=== PATIENT | female | born 1960 | race Caucasian/White ===

== ENCOUNTER 2020-06-10 15:39 | Outpatient (REF) | payer OTHER, SELFPAY | END 2020-06-10 15:40 | disposition home or self-care (01) | LOC: HO.LAB 15:39 | PROVIDERS: PCP Nurse Practitioner Family; Visit Provider Internal Medicine | DX: Z20.828 Contact with and (suspected) exposure to other viral communicable diseases (principal) | CPT/HCPCS: C9803; U0003 ==

== ENCOUNTER 2020-06-19 10:59 | Outpatient (REF) | payer OTHER, SELFPAY | END 2020-06-19 11:00 | disposition home or self-care (01) | LOC: HO.LAB 10:59 | PROVIDERS: PCP Nurse Practitioner Family; Visit Provider Internal Medicine | DX: Z20.828 Contact with and (suspected) exposure to other viral communicable diseases (principal) | CPT/HCPCS: C9803; U0003 ==

== ENCOUNTER 2021-01-20 16:13 | Outpatient (REF) | payer OTHER, SELFPAY ==
--- NOTE | ~2021-01-20 | XR_ITS ---
EXAMINATION: XR RIBS, LEFT CLINICAL INFORMATION: Pleurodynia COMPARISON: None TECHNIQUE: 3 views of the left ribs and one view of the chest were obtained. FINDINGS: The cardiac and mediastinal contours are normal. The lungs are clear. There is no pleural effusion or pneumothorax area there are degenerative changes of the spine. There is a calcified lesion in the right upper quadrant questionable for gallbladder, liver or right renal calcification. No rib fracture or bone lesion is seen. There are degenerative changes of thoracic spine. XR/XR ribs LT min 3V w CXR1V IMPRESSION: No rib fracture or bone lesion is seen. Degenerative changes of the thoracic spine. Right upper quadrant calcification, question representing gallbladder, liver or right renal calcification.
--- NOTE | ~2021-01-20 | US_ITS ---
EXAMINATION: US ABDOMEN LIMITED CLINICAL INFORMATION: Localized swelling, mass and lump, unspecified. COMPARISON: None TECHNIQUE: Real-time imaging of the left flank in the region of concern as indicated by the patient. FINDINGS: No soft tissue mass or hernia is appreciated by ultrasound. US/US abdomen limited IMPRESSION: No abnormality appreciated by ultrasound.
== END 2021-01-20 16:14 | disposition home or self-care (01) ==
LOC: HO.US 16:13
PROVIDERS: Visit Provider Physician Assistant
DX: R22.9 Localized swelling, mass and lump, unspecified (principal); R07.81 Pleurodynia
CPT/HCPCS: 71101; 76705

== ENCOUNTER 2021-01-22 12:44 | Outpatient (REF) | payer OTHER, SELFPAY ==
[2021-01-22 13:59] LABS: Hematocrit 43.6 % (37-47); Hemoglobin 14.3 g/dl (12.0-16.0); Mean Corpuscular HGB Conc 32.8 g/dl (31.0-35.0); Mean Corpuscular Hemoglobin 28.9 pg (27.0-33.0); Mean Corpuscular Volume 88.3 fL (80-98); Mean Platelet Volume 11.2 fL (9.4-12.3); Platelet Count 275 X10*3/uL (160-400); Red Blood Count 4.94 X10*6/uL (4.20-5.50); White Blood Count 9.2 X10*3/uL (4.8-10.8)
[2021-01-22 14:10] LABS: Alanine Aminotransferase 41 U/L (0-31); Albumin Level 4.7 g/dL (3.5-5.0); Alkaline Phosphatase 122 U/L (39-117); Anion Gap 13 (12-20); Aspartate Amino Transferase 27 U/L (5-31); Bilirubin Total 0.5 mg/dL (0.0-1.0); Blood Urea Nitrogen 19 mg/dL (9-16); Calcium 10.2 mg/dL (8.4-10.2); Carbon Dioxide 28 mmol/L (22-29); Chloride 106 mmol/L (96-108); Cholesterol 278 mg/dL; Estimated Glomerular Filt Rate > 60; Glucose Fasting 156 mg/dL (60-99); HDL Cholesterol 58 mg/dL; LDL Cholesterol Calculated 185 mg/dl; Potassium 5.2 mmol/L (3.3-5.1); Sodium 142 mmol/L (135-145); Total Protein 8.1 g/dL (6.5-8.0); Triglycerides 179 mg/dL
[2021-01-22 14:23] LABS: Creatinine Urine 301.17 mg/dL; Microalbum/Creatinine Ratio Ur 31.5 ug/mg cr
[2021-01-22 14:23] LABS: Estimated Average Glucose 160 mg/dL; Hemoglobin A1c % 7.2 %
== END 2021-01-22 12:45 | disposition home or self-care (01) ==
LOC: HO.LAB 12:44
PROVIDERS: Absent Provider Internal Medicine; PCP Internal Medicine; Visit Provider Physician Assistant
DX: E11.9 Type 2 diabetes mellitus without complications (principal); I10 Essential (primary) hypertension
CPT/HCPCS: 36415; 80053; 80061; 82043; 83036; 84443; 85027

== ENCOUNTER → 2021-07-15 16:01 | Outpatient (BNVA) | payer OTHER, SELFPAY | PROVIDERS: PCP Internal Medicine; Visit Provider Physician Assistant Surgical ==

== ENCOUNTER → 2021-08-11 07:59 | Outpatient (BNVA) | payer OTHER, SELFPAY | PROVIDERS: PCP Nurse Practitioner Family; Visit Provider Surgery ==

== ENCOUNTER → 2021-12-08 09:37 | Outpatient (BNVA) | payer OTHER, SELFPAY | PROVIDERS: PCP Nurse Practitioner Family; Visit Provider Physician Assistant Medical | DX: S80.02XA Contusion of left knee, initial encounter (principal); S93.401A Sprain of unspecified ligament of right ankle, initial encounter; S39.012A Strain of muscle, fascia and tendon of lower back, initial encounter; W01.0XXA Fall on same level from slipping, tripping and stumbling without subsequent striking against object, initial encounter | CPT/HCPCS: 73564; 73610; 99203 ==

== ENCOUNTER → 2021-12-12 09:45 | Outpatient (BNVA) | payer OTHER, SELFPAY | PROVIDERS: PCP Nurse Practitioner Family; Visit Provider Physician Assistant Medical | DX: S80.02XA Contusion of left knee, initial encounter (principal); S93.401A Sprain of unspecified ligament of right ankle, initial encounter; S00-T88 Injury, poisoning and certain other consequences of external causes; S39.012A Strain of muscle, fascia and tendon of lower back, initial encounter; W19.XXXA Unspecified fall, initial encounter | CPT/HCPCS: 99213 ==

== ENCOUNTER → 2021-12-18 07:55 | Outpatient (BNVA) | payer OTHER, SELFPAY | PROVIDERS: PCP Nurse Practitioner Family; Visit Provider Physician Assistant Medical | DX: S80.02XA Contusion of left knee, initial encounter (principal); S93.401A Sprain of unspecified ligament of right ankle, initial encounter; S39.012A Strain of muscle, fascia and tendon of lower back, initial encounter; W18.30XA Fall on same level, unspecified, initial encounter; M24.812 Other specific joint derangements of left shoulder, not elsewhere classified | CPT/HCPCS: 99213 ==

== ENCOUNTER → 2021-12-30 08:00 | Outpatient (BNVA) | payer OTHER, SELFPAY | PROVIDERS: PCP Nurse Practitioner Family; Visit Provider Physician Assistant Medical | DX: S80.02XD Contusion of left knee, subsequent encounter (principal); S93.401D Sprain of unspecified ligament of right ankle, subsequent encounter; S39.012D Strain of muscle, fascia and tendon of lower back, subsequent encounter; W18.30XD Fall on same level, unspecified, subsequent encounter; M24.812 Other specific joint derangements of left shoulder, not elsewhere classified | CPT/HCPCS: 73030; 73620; 99214 ==

== ENCOUNTER → 2022-02-02 14:20 | Outpatient (BNVA) | payer OTHER, SELFPAY | PROVIDERS: PCP Nurse Practitioner Family; Visit Provider Physician Assistant | DX: S93.401A Sprain of unspecified ligament of right ankle, initial encounter (principal) | CPT/HCPCS: 99202 ==

== ENCOUNTER → 2022-02-05 14:26 | Outpatient (BNVA) | payer OTHER, SELFPAY | PROVIDERS: PCP Nurse Practitioner Family; Visit Provider Physician Assistant | DX: S80.02XD Contusion of left knee, subsequent encounter (principal); S96.911D Strain of unspecified muscle and tendon at ankle and foot level, right foot, subsequent encounter; S39.012D Strain of muscle, fascia and tendon of lower back, subsequent encounter; W18.30XD Fall on same level, unspecified, subsequent encounter; M24.812 Other specific joint derangements of left shoulder, not elsewhere classified | CPT/HCPCS: 99213 ==

== ENCOUNTER → 2022-02-19 13:53 | Outpatient (BNVA) | payer OTHER, SELFPAY | PROVIDERS: PCP Nurse Practitioner Family; Visit Provider Physician Assistant Medical | DX: S80.02XD Contusion of left knee, subsequent encounter (principal); S93.401D Sprain of unspecified ligament of right ankle, subsequent encounter; S39.012D Strain of muscle, fascia and tendon of lower back, subsequent encounter; W01.0XXD Fall on same level from slipping, tripping and stumbling without subsequent striking against object, subsequent encounter; M24.812 Other specific joint derangements of left shoulder, not elsewhere classified | CPT/HCPCS: 99213 ==

== ENCOUNTER 2022-02-23 15:00 | Outpatient (RCR) | payer OTHER, SELFPAY ==
--- NOTE | 2021-12-16 10:20 | MHC.PT.EP ---
[facility] [place] Office [place] Office [place] Office [address] Lindsey Arnold [address] [phone] F: [phone] F: [phone] F: [phone] F: [phone] Physical Therapy Plan of Care Date of Evaluation: Date of Surgery: Diagnosis: Lt KNEE CONTUSION W EDEMA AND Rt ANKLE SPRAIN/ BRUISED 1ST METATARSAL Assessment: 61 YO FEMALE REF TO PT W H/O SUSTAINING A FALL AT WORK ON 12/08/21 W RESULTANT LEFT KNEE AND Rt ANKLE PAIN- Pt ALSO NOTES LEFT SH PAIN AND WE DISCUSSED IMPORTANCE OF F/U W HER MD. SHE IS CURRENTLY OOW W HER INJURIES- SHE IS A FULL-TIME TEACHER. Pt IS NOT USING AND AD, SHE WAS TALIB-WRAPPING Rt ANKLE. OBJECTIVE: MILD EDEMA IN LEFT KNEE AND Rt ANKLE, DECR ROM IN PEPE ANKLES/ HIPS, PAIN LEFT ANT KNEE/ PERIPATELLAR AREA AND Rt ANTEROLAT MALL, STRENGTH DEFICITS IN PROX HIPS, AND (+) ASYMMETRY IN PELVIS/ CREATING LLI EFFECT. FUNCTIONALLY, Pt HAS DIFFIC W FUNCTIONAL SQUATS, INCR AMB, STAIR MGMT- SHE HAS BEEN RESTRICTING HER ACTIVITY LEVEL SINCE HER FALL. Pt WOULD BENEFIT FROM PT TO ADDRESS THE ABOVE FINDINGS, PAIN MGMT, DEV A PROGR HEP AND SX MGMT STRATEGIES, AND , ULTIMATELY ASSIST Pt IN RTW. Frequency and Duration: The patient will be seen 2 x WK x 5 WKS Short Term Goals: Pt DEMON IMPROVED AROM IN PEPE ANKLES, LEFT HS, PEPE HIPS IN 2 WKS Pt'S Rt ANKLE AND LEFT KNEE PAIN DECR TO 2-3/10 W REG ADLs IN 2 WKS Pt DEMON WFL FUNCT SQUAT IN 2 WKS Pt DEMON WFL GAIT MECH ON LEVAL AND STAIRS IN 3 WKS Director Of Midwifery/Staff Midwife Goals: Pt INDEP W HEP PROGRESSION AND SELF-SX MGMT STRATEGIES IN 5 WKS Pt RESUME REG ADLs / RTW EVIDENT W IMPROVED LEFI SCORE BY 8-10 POINTS (AT EVAL 14/80 ) IN 5 WKS Pt INCR LE STRENGTH BY 1/2- 1 GRADE IN 5 WKS Treatment Plan: Modalities to reduce pain, spasms and effusion. Manual therapy to restore motion and function. Therapeutic exercise to improve strength and flexibility. Neuromuscular re-education for posture and balance. Therapeutic activities to return to functional activities of daily living. Electronically signed by: Abida Oritz PT Please sign and return to therapist. Thank you for your referral.
--- NOTE | 2022-02-24 15:01 | MHC.PT.DC ---
[facility] [place] Office [place] Office [place] Office [address] Lindsey Arnold [address] [phone] F: [phone] F: [phone] F: [phone] F: [phone] Physical Therapy Discharge Report Diagnosis: Lt KNEE CONTUSION W EDEMA AND Rt ANKLE SPRAIN/ BRUISED 1ST METATARSAL Date of Surgery: Date of Evaluation: 12/16/21 Date of Discharge: 02/23/22 Treatments to Date: 9 Cancellations to Date: No Shows to Date: Discharge Status: Achieved Goals Improved Function Independent with HEP Discharge Summary: Pt HAS PROGRESSED WELL IN PT- HER PAIN HAS RELATIVELY RESOLVED- SHE HAS A THOROUGH HEP, WITH INCONSISTENT COMPLIANCE. SHE IS D/C'D THIS DATE W HER HEP, SHE HAS MET HER PT GOALS TO MAX POTENTIAL AT THIS TIME. Electronically signed by: Abida Ortiz,PT Please sign and return to therapist. Thank you for your referral.
== END 2022-02-24 15:01 | disposition home or self-care (01) ==
LOC: HO.PT 15:00
PROVIDERS: PCP Nurse Practitioner Family; Visit Provider Physician Assistant Medical
DX: S39.012D Strain of muscle, fascia and tendon of lower back, subsequent encounter (principal); S29.012D Strain of muscle and tendon of back wall of thorax, subsequent encounter; S49.92XD Unspecified injury of left shoulder and upper arm, subsequent encounter; M24.562 Contracture, left knee
CPT/HCPCS: 97110; 97140; 97162; 97530

== ENCOUNTER → 2022-03-19 15:40 | Outpatient (BNVA) | payer OTHER, SELFPAY | PROVIDERS: PCP Nurse Practitioner Family; Visit Provider Physician Assistant Medical | DX: S80.02XD Contusion of left knee, subsequent encounter (principal); S93.401D Sprain of unspecified ligament of right ankle, subsequent encounter; S39.012D Strain of muscle, fascia and tendon of lower back, subsequent encounter; W01.0XXD Fall on same level from slipping, tripping and stumbling without subsequent striking against object, subsequent encounter; M24.812 Other specific joint derangements of left shoulder, not elsewhere classified | CPT/HCPCS: 99213 ==

== ENCOUNTER → 2022-04-03 08:37 | Outpatient (BNVA) | payer OTHER, SELFPAY | PROVIDERS: PCP Nurse Practitioner Family; Visit Provider Physician Assistant Medical | DX: S80.02XD Contusion of left knee, subsequent encounter (principal); S96.911D Strain of unspecified muscle and tendon at ankle and foot level, right foot, subsequent encounter; S39.012D Strain of muscle, fascia and tendon of lower back, subsequent encounter; W01.0XXD Fall on same level from slipping, tripping and stumbling without subsequent striking against object, subsequent encounter; M24.812 Other specific joint derangements of left shoulder, not elsewhere classified | CPT/HCPCS: 99213 ==

== ENCOUNTER → 2022-05-28 14:41 | Outpatient (BNVA) | payer OTHER, SELFPAY | PROVIDERS: PCP Nurse Practitioner Family; Visit Provider Physician Assistant Medical | DX: S80.02XD Contusion of left knee, subsequent encounter (principal); S93.401D Sprain of unspecified ligament of right ankle, subsequent encounter; S39.012D Strain of muscle, fascia and tendon of lower back, subsequent encounter; W01.0XXD Fall on same level from slipping, tripping and stumbling without subsequent striking against object, subsequent encounter; M24.812 Other specific joint derangements of left shoulder, not elsewhere classified; M25.552 Pain in left hip | CPT/HCPCS: 99213 ==

== ENCOUNTER → 2022-06-09 14:55 | Outpatient (BNVA) | payer OTHER, SELFPAY | PROVIDERS: PCP Nurse Practitioner Family; Visit Provider Physician Assistant Medical | DX: S80.02XD Contusion of left knee, subsequent encounter (principal); S93.401D Sprain of unspecified ligament of right ankle, subsequent encounter; S39.012D Strain of muscle, fascia and tendon of lower back, subsequent encounter; W01.0XXD Fall on same level from slipping, tripping and stumbling without subsequent striking against object, subsequent encounter; M24.812 Other specific joint derangements of left shoulder, not elsewhere classified; M25.552 Pain in left hip | CPT/HCPCS: 99213 ==

== ENCOUNTER 2022-06-09 16:24 | Outpatient (REF) | payer OTHER, SELFPAY ==
--- NOTE | ~2022-06-09 | MR_ITS ---
EXAMINATION: MR KNEE WITHOUT CONTRAST, LEFT CLINICAL INFORMATION: Contusion, pain, derangement COMPARISON: None TECHNIQUE: MRI of the knee without contrast was performed using routine sequences on a high-field scanner. FINDINGS: MENISCI: Medial Meniscus: Degeneration with possible minimal undersurface fraying of the posterior root. No tear is otherwise seen. Lateral Meniscus: Intact LIGAMENTS: Cruciate: Intact Collateral: Intact EXTENSOR MECHANISM: Intact ARTICULAR CARTILAGE/BONE: Patellofemoral Compartment: There is cartilage thinning in the superior aspect of the central patella and medial patellar facet. Medial Compartment: No significant cartilage loss Lateral Compartment: No significant cartilage loss JOINT FLUID AND BURSAE: Small joint fluid. Tiny Mena's cyst. Popliteus muscle and tendon intact. Pes anserine tendons appear unremarkable. MR/MR knee LT wo con IMPRESSION: 1. Degeneration with possible minimal undersurface fraying of the posterior root of the medial meniscus. No discrete meniscal tear is otherwise seen. 2. Mild chondromalacia patella. 3. Small joint fluid. Tiny Mena's cyst.
== END 2022-06-09 16:25 | disposition home or self-care (01) ==
LOC: HO.MRI 16:24
PROVIDERS: PCP Nurse Practitioner Family; Visit Provider Internal Medicine
DX: M25.562 Pain in left knee (principal); M23.92 Unspecified internal derangement of left knee; S80.02XD Contusion of left knee, subsequent encounter; X58.XXXD Exposure to other specified factors, subsequent encounter
CPT/HCPCS: 73721

== ENCOUNTER 2022-06-24 08:12 | Outpatient (REF) | payer OTHER, SELFPAY ==
--- NOTE | ~2022-06-24 | XR_ITS ---
EXAMINATION: X-RAY BILATERAL KNEES X-RAY LEFT KNEE CLINICAL INFORMATION: Left knee pain COMPARISON: X-ray 12/08/2021 TECHNIQUE: AP bilateral knees one view. Left knee 2 views. FINDINGS: Left knee: No acute fracture or dislocation. Joint spaces are maintained. Small marginal patellar osteophyte. No significant effusion. Soft tissues unremarkable. Right knee: No acute fracture or dislocation. Joint spaces are maintained. XR/XR knee standing BI IMPRESSION: No acute findings. Stable mild left patellar marginal spurring.
--- NOTE | ~2022-06-24 | XR_ITS ---
EXAMINATION: X-RAY BILATERAL KNEES X-RAY LEFT KNEE CLINICAL INFORMATION: Left knee pain COMPARISON: X-ray 12/08/2021 TECHNIQUE: AP bilateral knees one view. Left knee 2 views. FINDINGS: Left knee: No acute fracture or dislocation. Joint spaces are maintained. Small marginal patellar osteophyte. No significant effusion. Soft tissues unremarkable. Right knee: No acute fracture or dislocation. Joint spaces are maintained. XR/XR knee LT 2V IMPRESSION: No acute findings. Stable mild left patellar marginal spurring.
== END 2022-06-24 08:13 | disposition home or self-care (01) ==
LOC: HO.HOSX 08:12
PROVIDERS: Visit Provider Physician Assistant
DX: M17.12 Unilateral primary osteoarthritis, left knee (principal)
CPT/HCPCS: 73560; 73565; 99212

== ENCOUNTER → 2022-07-06 14:16 | Outpatient (BNVA) | payer OTHER, SELFPAY | PROVIDERS: PCP Nurse Practitioner Family; Visit Provider Physician Assistant | DX: M17.12 Unilateral primary osteoarthritis, left knee (principal) | CPT/HCPCS: 20610; J1020 ==

== ENCOUNTER → 2022-09-02 08:29 | Outpatient (BNVA) | payer OTHER, SELFPAY | PROVIDERS: Visit Provider Physician Assistant | DX: M17.12 Unilateral primary osteoarthritis, left knee (principal) | CPT/HCPCS: 99212 ==

== ENCOUNTER → 2022-09-07 11:13 | Outpatient (BNVA) | payer OTHER, SELFPAY | PROVIDERS: Visit Provider Orthopaedic Surgery | DX: M22.2X2 Patellofemoral disorders, left knee (principal); M17.12 Unilateral primary osteoarthritis, left knee | CPT/HCPCS: 99212 ==

== ENCOUNTER → 2022-10-19 12:08 | Outpatient (BNVA) | payer OTHER, SELFPAY | PROVIDERS: Visit Provider Orthopaedic Surgery | DX: M22.2X2 Patellofemoral disorders, left knee (principal) | CPT/HCPCS: 99202 ==

== ENCOUNTER 2022-11-05 17:00 | Outpatient (RCR) | payer OTHER, SELFPAY ==
--- NOTE | 2022-08-19 09:45 | MHC.PT.EP ---
[facility] [place] Office [place] Office [place] Office [address] Lindsey Arnold [address] [phone] F: [phone] F: [phone] F: [phone] F: [phone] Physical Therapy Plan of Care Date of Evaluation: Date of Surgery: Diagnosis: L knee osteoarthritis Assessment: Patient is a 62 y.o. female who is referred to PT by SCOTT Porras with Dx of osteoarthritis of L knee. PT diagnosis is medial meniscus degeneration and mild chondromalacia patella (as verified on MRI). Patient impairments include localized swelling, pain, limited ROM, weakness. Patient current functional limitations are walking long distances, walking outside on uneven surfaces, bending, standing (more than 1 hr), and using stairs. Patient will benefit from skilled PT to address aforementioned impairments and functional limitations to meet established goals. Frequency and Duration: The patient will be seen 2x/week for 6 weeks Short Term Goals: 3 weeks Patient demonstrates consistency and independence with HEP to self manage symptoms. Patient presents with reduced swelling in L knee 40 cm to be able to perform sit to stand without compensations. Hide Tanner Goals: 6 weeks Patient presents with increased L knee flexion 115 degrees to be able to squat to low surfaces. Patient presents with increased L knee extension 4+/5 to be able to perform stairs step to pattern with railing. Treatment Plan: Modalities to reduce pain, spasms and effusion. Manual therapy to restore motion and function. Therapeutic exercise to improve strength and flexibility. Neuromuscular re-education for posture and balance. Therapeutic activities to return to functional activities of daily living. Electronically signed by: Júnior Paris, PT, DPT Please sign and return to therapist. Thank you for your referral.
--- NOTE | 2022-11-10 12:49 | MHC.PT.DC ---
[facility] [place] Office [place] Office [place] Office [address] Lindsey Arnold [address] [facility] [phone] F: [phone] F: [phone] F: [phone] F: [phone] Physical Therapy Discharge Report Diagnosis: L knee osteoarthritis PT diagnosis is medial meniscus degeneration and mild chondromalacia patella (as verified on MRI). Date of Surgery: Date of Evaluation: 08/18/22 Date of Discharge: 11/05/22 Treatments to Date: 20 Cancellations to Date: No Shows to Date: Discharge Status: Achieved Goals Improved Function Independent with HEP Discharge Summary: All goals met -LEFS improved from 10%- 37.5% Electronically signed by: Júnior Paris PT, DPT Please sign and return to therapist. Thank you for your referral.
== END 2022-11-10 12:50 | disposition home or self-care (01) ==
LOC: HO.PT 17:00
PROVIDERS: PCP Nurse Practitioner Family; Visit Provider Physician Assistant
DX: M17.12 Unilateral primary osteoarthritis, left knee (principal)
CPT/HCPCS: 97110; 97140; 97161; 97530

== ENCOUNTER → 2022-11-06 08:58 | Outpatient (BNVA) | payer OTHER, SELFPAY | PROVIDERS: Visit Provider Nurse Practitioner Family | DX: M22.2X2 Patellofemoral disorders, left knee (principal); M79.605 Pain in left leg; G57.92 Unspecified mononeuropathy of left lower limb | CPT/HCPCS: 99202 ==

== ENCOUNTER → 2022-12-17 14:39 | Outpatient (BNVA) | payer OTHER, SELFPAY | PROVIDERS: PCP Nurse Practitioner Family; Visit Provider Orthopaedic Surgery | DX: M22.2X2 Patellofemoral disorders, left knee (principal); M17.12 Unilateral primary osteoarthritis, left knee; M25.462 Effusion, left knee | CPT/HCPCS: 99212 ==

== ENCOUNTER 2023-04-01 08:33 | Outpatient (REF) | payer OTHER, SELFPAY ==
--- NOTE | 2023-04-01 08:35 | EMG_ITS ---
Right tibial and peroneal motor studies were performed. Right sural, superficial peroneal and medial and lateral plantar sensory studies were performed and tibial H-reflex was obtained. Needle examination was performed. IMPRESSION: No evidence of entrapment neuropathy across the knee. 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 MD CLEOPATRA Shore/JAMAAL / [phone]
== END 2023-04-01 08:34 | disposition home or self-care (01) ==
LOC: HO.NEURO 08:33
PROVIDERS: PCP Nurse Practitioner Family; Visit Provider Nurse Practitioner Family
DX: G57.92 Unspecified mononeuropathy of left lower limb (principal); M22.2X2 Patellofemoral disorders, left knee; M79.605 Pain in left leg
CPT/HCPCS: 95886; 95910

== ENCOUNTER 2023-05-25 13:51 | Outpatient (REF) | payer OTHER, SELFPAY ==
[2023-05-26 12:26] LABS: CT PCR NOT DETECTED (Not Detect.); NG PCR NOT DETECTED (Not Detect.)
[2023-05-27 13:54] LABS: BV Int Neg Control Negative (Negative); BV Int Pos Control Positive (Positive)
[2023-05-27 20:18] LABS: HPV mRNA E6/E7 rflx Not Detected (Not Detected)
== END 2023-05-25 13:52 | disposition home or self-care (01) ==
LOC: HO.LNP 13:51
PROVIDERS: PCP Nurse Practitioner Family; Visit Provider Advanced Practice Midwife
DX: Z01.419 Encounter for gynecological examination (general) (routine) without abnormal findings (principal); Z11.51 Encounter for screening for human papillomavirus (HPV); Z78.0 Asymptomatic menopausal state; Z20.2 Contact with and (suspected) exposure to infections with a predominantly sexual mode of transmission
CPT/HCPCS: 0353U; 87480; 87510; 87624; 87660; 88142

== ENCOUNTER 2023-05-25 13:51 | Outpatient (AMB) | payer OTHER, SELFPAY ==
--- NOTE | 2023-05-25 13:53 | MHC.OFFVIS ---
Intake Vital Signs 05/25/23 14:04 Height 4 ft 10.5 in Weight 186 lb BMI 38.2 BP 124/76 Intake Visit Reasons: [employer] annual exam/DO NOT RS DO NOT OVERBOOK Intake Note: no concerns Sprinkler Driver Required: No Information Interpreted: non-clinical & clinical Signalling And Communications Engineer: Signalling And Communications Engineer Present (Marion CUELLAR) Accompanied by: Self / Same As Patient Allergies No Known Allergies [No Known Allergies*] Allergy (Verified 05/25/23 14:06) Post menopausal: Yes HPI [employer] annual exam/DO NOT RS DO NOT OVERBOOK HPI Details Patient is here for new composition weatherboard applier exam it has been many many years since she has come for an composition weatherboard applier exam she last saw Dr. Herbert when she was her last Pap smear in the [facility] system is in 2001. She delivered both babies with him 1 at [place] and 1 here. She has not had any composition weatherboard applier problems and so she did not seek care. She has diabetes and her doctor is in [place] and she is trying her on low dose of Ozempic and the low-dose she was given was not low enough so she has gone even lower. She works as the paraprofessional in the school so. She was exercising but then she fell and injured her knee and ankles last year so exercise was hard she did do physical therapy. She is not really worried about STDs but is open to testing along with the Pap smear. [facility] Medical History Depression DJD (degenerative joint disease) Obesity Surgical History No pertinent past surgical history Family History Mother No problems noted. Father No problems noted. Social History (Updated 05/25/23 @ 14:09 by Marion Aparicio CMA) Household Members: Spouse Housing: House Alcohol intake: never Patient Tobacco Use Status: Never used Tobacco Current occupational status: employed Current occupation: teacher Sexual orientation: Straight/Heterosexual Gender identity: Female Female Reproductive History Menstrual Menopause type: natural Total pregnancies: 2 Full term: 2 Number of Living Children: 2 Date of Mammogram: 02/17/21 Physical Exam Vital Signs: Last Vital Signs BP 124/76 10/31/23 14:04 BMI result Body Mass Index 38.2 Const General: healthy appearing, comfortable, no acute distress, well developed and alert Nutritional Appearance: average body habitus Orientation/consciousness: patient oriented x3 Limitations: no limitations HEENT Head: Yes normocephalic Neck Neck: Yes normal visual inspection Chest Chest palpation & inspection: normal inspection of the chest Breast/axilla inspection: normal inspection of the breasts and normal inspection of the axillae Breast/axilla palpation: normal palpation of the breasts and normal palpation of the axillae Resp Effort & Inspection: normal respiratory effort GI Inspection: Yes normal to inspection, No Abdominal wall edema and No distended Palpation (GI): Soft to palpation and nontender General: Yes bladder normal to palpation External Female Exam: normal external appearance and normal appearance of the urethra Speculum Exam - Vagina: normal appearance of the vagina, normal palpation and normal vaginal discharge Speculum Exam - Cervix: normal appearance of the cervix, normal palpation and nontender Bimanual exam- vagina & uterus: normal bimanual exam, normal palpation, uterine size normal, bladder normal to palpation, consistency normal, normal palpation, uterine mobility normal, uterine shape normal, No Cervical tenderness present, non-tender and no cervical motion tenderness Bimanual Exam- Adnexa, other: normal adnexae, no masses, normal and No adnexal tenderness Neuro General: patient oriented x3 Assessment & Plan Assessment & Plan (1) Obesity: Code(s): E66.9 - Obesity, unspecified (2) DMII (diabetes mellitus, type 2): Code(s): E11.9 - Type 2 diabetes mellitus without complications Qualifiers: Diabetes mellitus intermediate frame tender insulin use: without intermediate frame tender use Diabetes mellitus complication status: without complication Qualified Code(s): E11.9 - Type 2 diabetes mellitus without complications (3) Well woman exam with routine gynecological exam: Code(s): Z01.419 - Encounter for gynecological examination (general) (routine) without abnormal findings (4) Cervical cancer screening: Comment: No history of abnormals previous Pap was in 2001. Code(s): Z12.4 - Encounter for screening for malignant neoplasm of cervix (5) Postmenopausal: Code(s): Z78.0 - Asymptomatic menopausal state Plan -----Discussed in this visit the following: healthy balanced diet, regular and consistent exercise, getting recommended health screens, doing the best she can for her particular health concerns, kegel exercises, pap smear screening and followup recommendations, mammography screening and SBE, normal changes in cycles in her life stage--- . Patient will be scheduling her mammogram that was ordered by her primary care provider. Pap smear did was done and I offered the patient screens for infection while doing the Pap and she excepted those but has no need of blood work. She will be seeing her primary care provider in May for follow-up on her diabetes and med management. She complained of a leg cramp all she was putting her legs in stirrups. She says she often gets them at night I did suggest magnesium 250 mg once or twice a day and she could run this by her primary as well. RTC 1 year Orders: Orders Pap Smear Today Z01.419 - Encounter for gynecological examination (general) (routine) without abnormal findings CT NG by PCR Today Z01.419 - Encounter for gynecological examination (general) (routine) without abnormal findings Bacterial Vaginosis Panel Today Z01.419 - Encounter for gynecological examination (general) (routine) without abnormal findings Coding Level of Care Code New Pt Prev Care 40-64y(23448) Diagnoses Obesity E66.9 Type 2 diabetes mellitus without complication, without long-term current use of insulin E11.9 Diabetes mellitus intermediate frame tender insulin use: without intermediate frame tender use Diabetes mellitus complication status: without complication Well woman exam with routine gynecological exam Z01.419 Cervical cancer screening Z12.4 Postmenopausal Z78.0
[2023-05-25 14:04] VITALS: BP 124/76; BMI 38.2
== END 2023-05-25 14:48 | disposition home or self-care (01) ==
LOC: HO.HWS 13:52
PROVIDERS: PCP Nurse Practitioner Family; Visit Provider Advanced Practice Midwife
DX: Z01.419 Encounter for gynecological examination (general) (routine) without abnormal findings (principal); E66.9 Obesity, unspecified; E11.9 Type 2 diabetes mellitus without complications; Z12.4 Encounter for screening for malignant neoplasm of cervix; Z78.0 Asymptomatic menopausal state
CPT/HCPCS: 99386

== ENCOUNTER 2024-08-09 14:20 | Outpatient (REF) | payer BC, SELFPAY ==
[2024-08-10 10:44] LABS: HPV 16,18/45 See PAP report
== END 2024-08-09 14:21 | disposition home or self-care (01) ==
LOC: HO.LNP 14:20
PROVIDERS: PCP Nurse Practitioner Family; Visit Provider Advanced Practice Midwife
DX: Z01.419 Encounter for gynecological examination (general) (routine) without abnormal findings (principal); Z11.51 Encounter for screening for human papillomavirus (HPV)
CPT/HCPCS: 87626; 88175

== ENCOUNTER 2024-08-09 14:20 | Outpatient (AMB) | payer BC, SELFPAY ==
--- NOTE | 2024-08-09 14:20 | MHC.OFFVIS ---
Vital Signs 08/09/24 14:21 Height 5 ft 1 in Weight 175 lb BMI 33.1 BP 112/70 Intake Visit Reasons: Annual Intake Note: no concerns Airline Mechanic Required: No Information Interpreted: non-clinical & clinical Epic Prelude Analyst: Epic Prelude Analyst Present (Marion CUELLAR) Accompanied by: Self / Same As Patient Allergies No Known Allergies [No Known Allergies*] Allergy (Verified 08/09/24 14:28) Medication List - Last Reconciled 08/09/24 by Bonnie Dodson CNM blood sugar diagnostic As directed blood-glucose meter (FreeStyle Flash System kit) As directed lancets (FreeStyle Lancets) As directed lancets (FreeStyle Lancets) As directed rosuvastatin 10 mg PO DAILY semaglutide (Ozempic) 0.25 mg subcut QWEEK Post menopausal: Yes HPI HPI Annual: Details: 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 She is feeling pretty good she started on Ozempic about a year ago to help get her hemoglobin A1c down from about 9 to now it is between 5 and 6 she sees her primary care provider in [place] and that is where she gets her mammograms at as well it is a [facility] practice. 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 She has not been sexually active in the last couple of years and she did have lots of questions about this towards the end of the visit in that she would be interested in more activity but her is less interested and couple of years ago he did get some pills to use but he is not sure they worked and he is expressing less interest these days and she is wondering if this is normal. She says he does not go to the doctor but she does not believe he has diabetes and he has is very healthy. She checks his blood sugar when she checks her sometimes. They have been together 43 years and if it is normal to have decreased sexual activity in these years she will be okay with it. [facility] Medical History Depression DJD (degenerative joint disease) Obesity Surgical History No pertinent past surgical history Family History Mother No problems noted. Father No problems noted. Social History Household Members: Spouse Housing: House Alcohol intake: never Patient Tobacco Use Status: Never used Tobacco Current occupational status: employed Current occupation: teacher Sexual orientation: Straight/Heterosexual Gender identity: Female Female Reproductive History Menstrual Menopause type: natural Total pregnancies: 2 Full term: 2 Number of Living Children: 2 Date of last pap smear: 05/26/23 Date of Mammogram: 02/17/21 Physical Exam Vital Signs: Last Vital Signs BP 112/70 08/09/24 14:21 BMI result Body Mass Index 33.1 Const General: healthy appearing, comfortable, no acute distress, well developed and alert Nutritional Appearance: average body habitus Orientation/consciousness: patient oriented x3 Limitations: no limitations HEENT Head: Yes normocephalic Neck Neck: Yes normal visual inspection Chest Chest palpation & inspection: normal inspection of the chest Breast/axilla inspection: normal inspection of the breasts and normal inspection of the axillae Breast/axilla palpation: normal palpation of the breasts and normal palpation of the axillae Resp Effort & Inspection: normal respiratory effort GI Inspection: Yes normal to inspection, No Abdominal wall edema and No distended Palpation (GI): Soft to palpation and nontender Other: Vagina pink and moist some atrophic changes to vaginal mucosa evident there was a red spot adjacent to patient's cervix so decision was made to take Pap smear and cervical spatula did include this area just for thoroughness even though her last Pap smear was done 2022 negative and she says she has never had an abnormal 1. Cervix is otherwise pink smooth uterus anteverted mobile nontender adnexa nontender good tone with Kegel. General: Yes bladder normal to palpation External Female Exam: normal external appearance and normal appearance of the urethra Speculum Exam - Vagina: normal appearance of the vagina, normal palpation and normal vaginal discharge Speculum Exam - Cervix: normal appearance of the cervix, normal palpation and nontender Bimanual exam- vagina & uterus: normal bimanual exam, normal palpation, uterine size normal, bladder normal to palpation, consistency normal, normal palpation, uterine mobility normal, uterine shape normal, No Cervical tenderness present, non-tender and no cervical motion tenderness Bimanual Exam- Adnexa, other: normal adnexae, no masses, normal and No adnexal tenderness Neuro General: patient oriented x3 Results Reviewed Results Reviewed: Name: Carlita Moreno Age/Sex: 62/F Attending: Bonnie Dodson CNM : 1960 Submitted by: Bonnie Dodson CNM Copies to: Daisy Colon NP MR #: [id number] Status: DEP REF Collected: 05/25/23 Location: [facility] Received: 05/26/23 Interpretation Satisfactory for evaluation. Negative for intraepithelial lesion or malignancy. HPV mRNA E6/E7: NOT DETECTED This assay detects E6/E7 viral messenger RNA (mRNA) from 14 high-risk HPV types (16, 18, 31, 33, 35, 39, 45, 51, 52, 56, 58, 59, 66, 68) HPV testing performed by [facility], [place], [place]. See reference laboratory pion of the EMR for entire report. Clinical Information LMP: Postmenopausal Previous PAP test: Unknown date/findings Material Received ThinPrep-Cervical Copies To Daisy Colon NP [address] [place] [id number] Bonnie Dodson CNM [address] [place] [address] Dr. Wong [address] [place] [address] Electronically Signed By: DARIN Hinojosa (ASCP) 06/03/23 1111 The Pap Test is a screening procedure with the inherent possibility of both false negative and false positive results. Results should be interpreted in the context of historic and current clinical findings. Reliability of the Pap Test is enhanced by performing the test on a regular repetitive basis. Patient: Carlita Moreno Age/Sex: 62/F MR#: [id number] Page 1 of 1 Assessment & Plan Assessment & Plan (1) DMII (diabetes mellitus, type 2): Comment: Has been on Ozempic for about the last year and notes great improvement in her hemoglobin A1c and has lost about 30 lb and feels great. Code(s): E11.9 - Type 2 diabetes mellitus without complications Category: Medical Qualifiers: Diabetes mellitus senior care insulin use: without longitudinal float operator use Diabetes mellitus complication status: without complication Qualified Code(s): E11.9 - Type 2 diabetes mellitus without complications (2) Well woman exam with routine gynecological exam: Code(s): Z01.419 - Encounter for gynecological examination (general) (routine) without abnormal findings Category: Medical (3) Cervical cancer screening: Comment: No history of abnormals previous Pap was in 2001.; 05/25/2023 Pap is negative with negative HPV. Code(s): Z12.4 - Encounter for screening for malignant neoplasm of cervix Category: Medical (4) Postmenopausal: Code(s): Z78.0 - Asymptomatic menopausal state Category: Medical Plan -----Discussed in this visit the following: healthy balanced diet, regular and consistent exercise, getting recommended health screens, doing the best she can for her particular health concerns, kegel exercises, pap smear screening and followup recommendations, mammography screening and SBE, normal changes in cycles in her life stage--- Patient had. said she had no history of abnormals had reviewed plan with patient that her last Pap smear should be about when she turns 66 and then she would not need any more after that however decision made during the visit to do a Pap smear and include the red spot next to her cervix out of an abundance of caution. Patient had no need for any STI testing and had not been sexually active in the last couple of years with her and regardless has no concerns about STIs.. Discussed changes of libido and function as women and probably meant to get older and impact 2nd have relationship suggested became with the or if she was interested in speaking with anyone else she could. Did discuss the range of abnormals and discussed making sure that he does check his help in case he is having any issues but very often these issues are normal for both parties and there is often an imbalance in desires of both and this is extremely common. Also discussed that it makes sense that with her feeling so much healthier and losing the weight and getting her hemoglobin A1c and diabetes under better control that it makes sense that she would feel better and might experience in increase in her libido and this would be entirely normal. Discussed ways of meeting these needs. Orders: Orders Pap Smear Today Z01.419 - Encounter for gynecological examination (general) (routine) without abnormal findings HPV High risk Today Z01.419 - Encounter for gynecological examination (general) (routine) without abnormal findings Coding Level of Care Code Est Pt Prev Care 40-64y([id number]) Diagnoses Type 2 diabetes mellitus without complication, without long-term current use of insulin E11.9 Diabetes mellitus senior care insulin use: without longitudinal float operator use Diabetes mellitus complication status: without complication Well woman exam with routine gynecological exam Z01.419 Cervical cancer screening Z12.4 Postmenopausal Z78.0
[2024-08-09 14:21] VITALS: BP 112/70; BMI 33.1
== END 2024-08-09 15:28 | disposition home or self-care (01) ==
LOC: HO.HWSM 14:20
PROVIDERS: PCP Nurse Practitioner Family; Visit Provider Advanced Practice Midwife
DX: Z01.419 Encounter for gynecological examination (general) (routine) without abnormal findings (principal); Z78.0 Asymptomatic menopausal state
CPT/HCPCS: 99396; 99459